=== PATIENT | male | born 1960 | race Caucasian/White ===

== ENCOUNTER 2018-03-07 21:25 | Inpatient (IN) | payer OTHER ==
[~2018-03-07] VITALS: Ht 185.4 cm; Wt 99.3 kg
--- NOTE | 2018-03-07 21:28 | NUR ---
BIBA TO ER BED 11
[2018-03-07 21:30] VITALS: BP 123/84
--- NOTE | 2018-03-07 21:30 | NUR ---
58/M BIBA FOR ETOH. PER EMS, PT WAS PICKED UP FROM [facility]. PT WAS FOUND ALTERED SITTING AT BATHROOM. BS 95 ON SCENE. PT ARRIVES AOX4, MILDLY LETHARGIC, AMBULATORY WITH GENERALIZED WEAKNESS. SKIN PINK WARM DRY. LUNG SOUNDS CLEAR BL, RR EVEN AND UNLABORED. BS ACTIVE X4, ABD SOFT ROUND NONTENDER. PT REPORTS DYSURIA, DENIES ANY OTHER PAIN. HX LIVER AND BLADDER CA, RECENT UTI RX RECENTLY TAKING KEFLEX PO
--- NOTE | 2018-03-07 21:40 | NUR ---
EKG PERFORMED AT BEDSIDE. PT COVERED IN GOWN. NORMAL SINUS RHYTHM
--- NOTE | 2018-03-07 21:55 | NUR ---
PT TAKEN TO CT
[2018-03-07 22:01] LABS: BASOPHILS # (AUTO) 0.1 K/uL (0.00-0.22); BASOPHILS % (AUTO) 1.7 % (0.0-2.0); EOSINOPHILS # (AUTO) 0.5 K/uL (0-0.4); EOSINOPHILS % (AUTO) 7.3 % (0.0-4.0); HEMATOCRIT 42.7 % (36-52); HEMOGLOBIN 14.1 g/dL (12.0-18.0); LYMPHOCYTES # (AUTO) 1.6 K/uL (2.0-11.5); LYMPHOCYTES % (AUTO) 23.6 % (20.5-51.1); MEAN CORPUSCULAR HEMOGLOBIN 31 pg (27-31); MEAN CORPUSCULAR HGB CONC 33 g/dL (33-37); MEAN CORPUSCULAR VOLUME 94.4 fL (80-94); MONOCYTES # (AUTO) 0.5 K/uL (0.8-1.0); MONOCYTES % (AUTO) 7.4 % (1.7-9.3); NEUTROPHILS # (AUTO) 4.1 K/uL (1.8-7.7); PLATELET COUNT (AUTO) 327 K/uL (140-450); RED BLOOD CELL COUNT(AUTO) 4.53 MIL/uL (4.20-6.10); RED CELL DISTRIBUTION WIDTH 18.4 % (11.6-13.7); WHITE BLOOD COUNT (AUTO) 6.8 K/uL (4.8-10.8)
[2018-03-07 22:19] LABS: APPEARANCE,URINE CLOUDY (CLEAR); BILIRUBIN,URINE 2+ (NEGATIVE); BLOOD, URINE 2+ (NEGATIVE); COLOR,URINE ORANGE (YELLOW); LEUKOCYTE ESTERASE ,URINE 1+ (NEGATIVE); NITRITE, URINE POSITIVE (NEGATIVE); UGLUCOSE 1+ (NEGATIVE)
[2018-03-07 22:23] LABS: POTASSIUM 3.7 mmol/L (3.5-5.1)
[2018-03-07 22:25] LABS: PROTHROMBIN TIME 10.1 secs (10.8-13.4)
[2018-03-07 22:31] LABS: BARBITURATE, URINE NEG. ng/ml (NEG <=200); BENZODIAZEPINE, URINE POS. ng/mL (NEG <=200); CANNABINOID, URINE NEG. ng/mL (NEG <=50); COCAINE, URINE NEG. ng/mL (NEG <=300); OPIATE, URINE NEG. ng/mL (NEG <=2000); PHENCYCLIDINE SCREEN,URINE NEG. ng/mL (NEG <=25)
[2018-03-07 22:37] LABS: ALBUMIN 4.2 g/dL (3.4-5.0); ANION GAP 6.7 (8-16); CREATININE 1.3 mg/dL (0.7-1.3); TOTAL BILIRUBIN 0.2 mg/dL (0.0-1.0)
--- NOTE | 2018-03-07 22:45 | NUR ---
PT SLEEPING COMFORTABLY, AROUSABLE TO NAME, SPO2 92% ON ROOM AIR, PLACED ON O2 2L NC, SPO2 96%. ALL NEEDS MET AT THIS TIME.
[2018-03-07 22:53] LABS: HYALINE CASTS, URINE 0-10 /LPF (None Seen); RBC,URINE TOO NUMEROUS TO COUN /HPF (0-5); WBC,URINE TOO MANY TO COUNT /HPF (0-5)
[2018-03-08] MEDS ORDERED: cefTRIAXone 1,000 MG VIAL ONE (00:43)
[2018-03-08] MEDS ORDERED: MORPHINE SULFATE 2 MG/ML SYR IVP PRN (00:45)
[2018-03-08] MEDS ORDERED: ONDANSETRON 4 MG/2 ML VIAL IM/IVP PRN (00:45)
[2018-03-08] MEDS ORDERED: ACETAMINOPHEN 325 MG TAB PO PRN (00:45)
[2018-03-08] MEDS ORDERED: LORazepam 2 MG/ML VIAL IM/IVP PRN (00:45)
[2018-03-08] MEDS ORDERED: DOCUSATE SODIUM 100 MG GELCAP PO PRN (00:45)
--- NOTE | 2018-03-08 01:00 | NUR ---
PROVIDED PT WITH ADDRESS TO PT'S CAR PARKED AT [facility] [address] [facility], [place], [place], [address].
--- NOTE | 2018-03-08 01:18 | NUR ---
Patient will be admitted to care of DR. CHEN. Admited to TELE. Will go to room 120B. Belongings list completed. Report to JACKSON ALTMAN.
--- NOTE | 2018-03-08 01:20 | NUR ---
ADMITTED A 58 Y/O MALE VIA GURNEY FROM WITH CHIEF COMPLAINT OF ALOC, CONFUSION, LETHARGY. PATIENT IS AMBULATORY, AA0X4, COOPERATIVE. DISCUSS PLAN OF CARE AND VERBALIZED UNDERSTANDING. MRSA NASAL SWAB DONE. SKIN NON-INTACT. PICTURE TAKEN RIGHT KNEE. ROUTINE ADMISSION CARE DONE AND CARRY OUT ORDERS. BED IN LOW LOCKED POSITION. CALL LIGHT WITHIN REACH. PERSONAL BELONGING AT BEDSIDE. ALL NEEDS ATTENDED. WILL CONTINUE TO MONITOR.
[2018-03-08] MEDS: NACL 0.9% 1,000 ML IV SCH ×3 (01:35→17:43)
[2018-03-08 01:44] LABS: FREE T4 (FREE THYROXINE) 0.85 ng/dL (0.76-1.46); MAGNESIUM 1.8 mg/dL (1.8-2.4); PHOSPHORUS 3.7 mg/dL (2.5-4.9); THYROID STIMULATING HORMONE 0.87 uIU/mL (0.34-3.74)
[2018-03-08] MEDS ORDERED: MORPHINE SULFATE 2 MG/ML SYR IVP SCH (03:30)
--- NOTE | 2018-03-08 03:30 | NUR ---
SEEN PATIENT ASLEEP COMFORTABLE ON BED. NO S/S OF DISTRESS NOTED. CALL LIGHT WITHIN REACH. WILL CONTINUE TO MONITOR.
[2018-03-08] MEDS ORDERED: LACTULOSE 20 GM/30 ML UDC PO SCH (03:35)
[2018-03-08 04:00] VITALS: BP 114/74
[2018-03-08] MEDS ORDERED: PIPERACILLIN/TAZOBACTAM 3.375 GM VIAL IV ONE (05:15)
--- NOTE | 2018-03-08 05:30 | NUR ---
SEEN PATIENT RESTING ON BED. SCHEDULE MEDICATION GIVEN TOLERATED WELL. CALL LIGHT WITHIN REACH.
[2018-03-08] MEDS: PIPER/TAZO 3.375GM/D5W PREMIX 50 ML IV SCH ×3 (06:18→18:24)
[2018-03-08] MEDS: HYDROcodone/APAP 5/325 MG 1 TAB TAB PO PRN ×3 (06:24→22:05)
--- NOTE | 2018-03-08 07:30 | NUR ---
ENDORSEMENT GIVEN TO AM SHIFT NURSE AT BEDSIDE FOR CONTINUITY OF CARE. PATIENT IN STABLE CONDITION.
--- NOTE | 2018-03-08 07:31 | NUR ---
REPORT RECEIVED FROM DIE MECHANIC NURSE AT BEDSIDE FOR CONTINUITY OF CARE. PATIENT AWAKE AND ALERT. PATIENT IS AMBULATORY, AA0X4, COOPERATIVE. DISCUSS PLAN OF CARE AND VERBALIZED UNDERSTANDING. IV SITE DRY, INTACT, ASYMPTOMATIC, AND INFUSING IVF WELL. PATIENT STATES THAT PAIN IS TOLERABLE AT THIS TIME. UPDATED BOARD. SKIN NON-INTACT WITH RIGHT KNEE SCAB. SAFETY PRECAUTION IN PLACE, CALL LIGHT WITHIN REACH, WILL CONTINUE TO MONITOR.
[2018-03-08 07:52] VITALS: BP 107/70
[2018-03-08] MEDS: LACTULOSE 20 GM/30 ML UDC PO SCH (08:28)
[2018-03-08] MEDS: LACTOBACILLUS RHAMNOSUS GG 1 EACH CAP PO SCH (08:28)
--- NOTE | 2018-03-08 08:28 | NUR ---
ORDERED MEDICATION GIVEN. PATIENT TOLERATED IT WELL. WILL CONTINUE TO MONITOR PATIENT.
--- NOTE | 2018-03-08 09:00 | NUR ---
NEW ORDER IN, PATIENT OFF NPO, NOW ON REGULAR DIET. CALLED DIETARY FOR REGULAR BREAKFAST TRAY FOR PATIENT. WILL FOLLOW UP LATER IF TRAY DOES NOT ARRIVE.
--- NOTE | 2018-03-08 09:06 | NUR ---
PATIENT HAS BEEN SCREENED AND CATEGORIZED HIGH NUTRITION RISK. PATIENT WILL BE SEEN WITHIN 1-2 DAYS OF ADMISSION. 03/08/18 03/09/[address]
[2018-03-08 09:22] LABS: BASOPHILS % (AUTO) 0.8 % (0.0-2.0); EOSINOPHILS # (AUTO) 0.4 K/uL (0-0.4); EOSINOPHILS % (AUTO) 8.9 % (0.0-4.0); HEMATOCRIT 36.1 % (36-52); HEMOGLOBIN 11.9 g/dL (12.0-18.0); LYMPHOCYTES # (AUTO) 1.2 K/uL (2.0-11.5); LYMPHOCYTES % (AUTO) 24.9 % (20.5-51.1); MEAN CORPUSCULAR HEMOGLOBIN 31 pg (27-31); MEAN CORPUSCULAR HGB CONC 33 g/dL (33-37); MEAN CORPUSCULAR VOLUME 94.5 fL (80-94); MONOCYTES # (AUTO) 0.4 K/uL (0.8-1.0); MONOCYTES % (AUTO) 8.4 % (1.7-9.3); NEUTROPHILS # (AUTO) 2.7 K/uL (1.8-7.7); PLATELET COUNT (AUTO) 252 K/uL (140-450); RED BLOOD CELL COUNT(AUTO) 3.82 MIL/uL (4.20-6.10); RED CELL DISTRIBUTION WIDTH 18.4 % (11.6-13.7); WHITE BLOOD COUNT (AUTO) 4.7 K/uL (4.8-10.8)
[2018-03-08 09:30] LABS: CHOL/HDL RATIO 6.8 (1-4.5)
--- NOTE | 2018-03-08 09:30 | NUR ---
DIETARY BROUGHT REGULAR TRAY FOR PATIENT.
[2018-03-08 09:45] LABS: ANION GAP 5.1 (8-16); CARBON DIOXIDE 32.8 mmol/L (21-32); CREATININE 1.1 mg/dL (0.7-1.3); POTASSIUM 3.9 mmol/L (3.5-5.1)
[2018-03-08 09:46] LABS: MAGNESIUM 1.9 mg/dL (1.8-2.4); PHOSPHORUS 3.2 mg/dL (2.5-4.9)
--- NOTE | 2018-03-08 10:21 | NUR ---
ORDERED MEDICATION GIVEN. PATIENT C/O 6/10 PAIN, PRN PAIN MEDICATION GIVEN. PATIENT TOLERATED IT WELL. WILL CONTINUE TO MONITOR PATIENT.
[2018-03-08 12:00] VITALS: BP 123/72
--- NOTE | 2018-03-08 13:41 | NUR ---
ORDERED MEDICATION GIVEN. PATIENT TOLERATED IT WELL. PATIENT'S MOTHER AND SISTER CALLED SEPARATELY ONE AFTER THE OTHER. UPDATED THEM WITH PATIENT'S CONDITION. THEY VERBALIZED UNDERSTANDING. PATIENT ASLEEP, THEY SAID THEY WILL CALL HIM BACK.
[2018-03-08] MEDS: MORPHINE SULFATE 2 MG/ML SYR IVP PRN ×2 (14:35→18:22)
--- NOTE | 2018-03-08 14:35 | NUR ---
ORDERED MEDICATION GIVEN. PATIENT C/O 8/10 PAIN, MORPHINE PRN GIVEN. PATIENT TOLERATED IT WELL. WILL CONTINUE TO MONITOR PATIENT.
--- NOTE | 2018-03-08 15:19 | NUR ---
03/08/18 RD INITIAL ASSESSMENT COMPLETED PLEASE REFER TO NUTRITION ASSESSMENT UNDER CARE ACTIVITY FOR ESTIMATED NUTRITIONAL NEEDS. 1. CONTINUE REGULAR DIET TOLERATED 2. RECOMMEND HEALTH SHAKE, ICE- CREAM TO SUPPLEMENT CALORIE LEVELS. 3. RD TO FOLLOW-UP 3-5 DAYS, MODERATE RISK. TERRENCE CHAMBERLAIN RD
[2018-03-08 16:00] VITALS: BP 139/81
--- NOTE | 2018-03-08 16:15 | NUR ---
VITAL SIGNS WITHIN NORMAL LIMITS. PATIENT ASKED ABOUT PAIN MEDICATIONS. INFORMED HIM OF SCHEDULED PAIN MED. HE VERBALIZED UNDERSTANDING. WILL CONTINUE TO MONITOR PATIENT.
--- NOTE | 2018-03-08 18:25 | NUR ---
ORDERED MEDICATION GIVEN. PATIENT C/O 8/10 PAIN, MORPHINE PRN GIVEN. PATIENT TOLERATED IT WELL. WILL CONTINUE TO MONITOR PATIENT.
--- NOTE | 2018-03-08 19:38 | NUR ---
REPORT GIVEN AT BEDSIDE FOR CONTINUITY OF CARE. PATIENT IN STABLE CONDITION, SLEEPING.
[2018-03-08 20:00] VITALS: BP 103/49
[2018-03-08] MEDS: ATORVASTATIN 20 MG TAB PO SCH (20:38)
--- NOTE | 2018-03-08 20:39 | NUR ---
ADMINISTERED SCHEDULED MEDICATION, PT TOLERATED WELL.
[2018-03-08] MEDS: ZOLPIDEM 5 MG TAB PO PRN (22:07)
--- NOTE | 2018-03-08 22:10 | NUR ---
PT REQUESTED [facility] FOR PAIN AND AMBIEN FOR INSOMNIA. MEDICATED PT, PT TOLERATED WELL.
[2018-03-09] VITALS: BP 115/67
--- NOTE | 2018-03-09 | NUR ---
VITAL SIGNS WITHIN NORMAL LIMITS. PT STABLE, NO SIGNS OF DISTRESS NOTED AT THIS TIME. BED IN LOWEST POSITION, BED ALARM ON. CALL LIGHT WITHIN REACH, WILL CONTINUE TO MONITOR.
[2018-03-09] MEDS: PIPER/TAZO 3.375GM/D5W PREMIX 50 ML IV SCH ×4 (00:03→17:46)
--- NOTE | 2018-03-09 02:12 | NUR ---
PT RESTING, STABLE, NO SIGNS OF DISTRESS NOTED AT THIS TIME. BED IN LOWEST POSITION, BED ALARM ON. CALL LIGHT WITHIN REACH, WILL CONTINUE TO MONITOR.
[2018-03-09] MEDS: MORPHINE SULFATE 2 MG/ML SYR IVP PRN ×2 (02:28→08:18)
[2018-03-09 04:00] VITALS: BP 98/62
[2018-03-09] MEDS: NACL 0.9% 1,000 ML IV SCH ×2 (05:52→08:40)
[2018-03-09 07:04] LABS: BASOPHILS % (AUTO) 0.7 % (0.0-2.0); EOSINOPHILS # (AUTO) 0.3 K/uL (0-0.4); EOSINOPHILS % (AUTO) 5.1 % (0.0-4.0); HEMOGLOBIN 12.6 g/dL (12.0-18.0); LYMPHOCYTES # (AUTO) 0.8 K/uL (2.0-11.5); LYMPHOCYTES % (AUTO) 13.1 % (20.5-51.1); MEAN CORPUSCULAR HEMOGLOBIN 31 pg (27-31); MEAN CORPUSCULAR HGB CONC 33 g/dL (33-37); MEAN CORPUSCULAR VOLUME 93.8 fL (80-94); MONOCYTES # (AUTO) 0.4 K/uL (0.8-1.0); MONOCYTES % (AUTO) 7.2 % (1.7-9.3); NEUTROPHILS # (AUTO) 4.6 K/uL (1.8-7.7); NEUTROPHILS % (AUTO) 73.9 % (42.2-75.2); PLATELET COUNT (AUTO) 272 K/uL (140-450); RED BLOOD CELL COUNT(AUTO) 4.06 MIL/uL (4.20-6.10); RED CELL DISTRIBUTION WIDTH 18.4 % (11.6-13.7); WHITE BLOOD COUNT (AUTO) 6.2 K/uL (4.8-10.8)
--- NOTE | 2018-03-09 07:15 | NUR ---
ASSUMED CONTINUITY OF CARE. NO SIGNS AND SYMPTOMS OF ACUTE DISTRESS NOTICED. INITIAL ASSESSMENT DONE. EXPLAINED DIAGNOSIS, PLAN OF CARE, PAIN MANAGEMENT TEACHING, USE OF CALL LIGHT/BED/TV/BATHROOM. VERBALIZED UNDERSTANDING. CALL LIGHT WITHIN REACH.
[2018-03-09 07:17] LABS: T4 (THYROXINE) 6.3 ug/dL (4.5-12.0)
[2018-03-09 07:18] LABS: MAGNESIUM 1.9 mg/dL (1.8-2.4); PHOSPHORUS 2.5 mg/dL (2.5-4.9)
[2018-03-09 07:22] LABS: CARBON DIOXIDE 28.6 mmol/L (21-32); CREATININE 0.8 mg/dL (0.7-1.3); POTASSIUM 3.6 mmol/L (3.5-5.1)
--- NOTE | 2018-03-09 07:25 | NUR ---
ENDORSED PT TO DAY SHIFT RN FOR CONTINUITY OF CARE, PT IN STABLE CONDITION.
--- NOTE | 2018-03-09 07:25 | NUR ---
VITAL SIGNS WITHIN NORMAL LIMITS. PT STABLE, NO SIGNS OF DISTRESS NOTED AT THIS TIME. BED IN LOWEST POSITION, BED ALARM ON. CALL LIGHT WITHIN REACH, WILL CONTINUE TO MONITOR. Addendum: 03/09/18 at 0725 by Kusum Vences RN DISREGARD
--- NOTE | 2018-03-09 07:26 | NUR ---
Patient's Plan of Care was discussed and reviewed with [employer] REPRESENTATIVE: GARLAND MODI
[2018-03-09 08:00] VITALS: BP 102/66
[2018-03-09] MEDS: LACTOBACILLUS RHAMNOSUS GG 1 EACH CAP PO SCH (08:42)
[2018-03-09] MEDS: LACTULOSE 20 GM/30 ML UDC PO SCH ×2 (08:42→20:27)
--- NOTE | 2018-03-09 11:45 | NUR ---
IV ACCESS ON RIGHT AC GAUGE #18 OCCLUDED AND REMOVED. INSERTED NEW IV ACCESS ON RIGHT FOREARM WITH GAUGE #22. TOLERATED WELL. NO C/O PAIN.
[2018-03-09 12:00] VITALS: BP 128/91
[2018-03-09] MEDS: oxyCODONE 5 MG TAB PO PRN ×2 (12:35→18:21)
[2018-03-09 16:00] VITALS: BP 122/92
--- NOTE | 2018-03-09 19:16 | NUR ---
BEDSIDE REPORT GIVEN TO LISANDRO RODRIGUEZ -JACKSON. IVF INFUSING WELL. IN STABLE CONDITION.
--- NOTE | 2018-03-09 19:17 | NUR ---
RECEIVED REPORT FROM DAY SHIFT NURSE. AAOX4. PT LYING COMFORTABLY IN BED. NO C/O PAIN OR SOB. PT ON ROOM AIR. IV TO RIGHT FA #22G, NS AT 80 ML/HR, INFUSING WELL. PT HAS SCAB TO RIGHT KNEE. DISCUSSED PLAN OF CARE, PT VERBALIZED UNDERSTANDING. SAFETY PRECAUTION IN PLACE. CALL LIGHT WITHIN REACH.
[2018-03-09] MEDS: ATORVASTATIN 20 MG TAB PO SCH (20:26)
--- NOTE | 2018-03-09 20:27 | NUR ---
DUE MEDS GIVEN. PT TOLERATED WELL. NO C/O PAIN AT THIS TIME.
[2018-03-09] MEDS: ZOLPIDEM 5 MG TAB PO PRN (22:18)
--- NOTE | 2018-03-09 22:19 | NUR ---
PT STATED HE COULDN'T SLEEP AND ASKED FOR MEDS TO MAKE HIM SLEEP. AMBIEN 5 MG PO GIVEN.
[2018-03-10] VITALS: BP 130/84
[2018-03-10] MEDS: oxyCODONE 5 MG TAB PO PRN (00:22)
[2018-03-10] MEDS: PIPER/TAZO 3.375GM/D5W PREMIX 50 ML IV SCH ×2 (00:22→05:36)
--- NOTE | 2018-03-10 00:22 | NUR ---
PT C/O ABDOMINAL PAIN SCALE 7/10. OXYCODONE 5 MG PO GIVEN ORDERED FOR SEVERE PAIN.
[2018-03-10] MEDS ORDERED: KETOROLAC 30 MG/ML VIAL IM ONE (01:55)
[2018-03-10] MEDS ORDERED: oxyCODONE 5 MG TAB PO PRN (01:55)
--- NOTE | 2018-03-10 02:00 | NUR ---
PT SLEEPING. RESP EVEN AND UNLABORED. NO S/S OF PAIN. IVF INFUSING WELL.
[2018-03-10] MEDS ORDERED: MORPHINE SULFATE 2 MG/ML SYR IVP PRN (03:10)
--- NOTE | 2018-03-10 03:22 | NUR ---
PT C/O ABDOMINAL PAIN 01/08 AND STATED HE WANTS STRONGER PAIN MEDS. DR. FAN MADE AWARE AND ORDERED MORPHINE 2 MG Q6HRS PRN FOR SEVERE PAIN.
[2018-03-10] MEDS ORDERED: MORPHINE SULFATE 2 MG/ML SYR ONE (03:25)
--- NOTE | 2018-03-10 05:30 | NUR ---
PT SLEEPING. NO S/S OF RESP DISTRESS. NO S/S OF PAIN.
[2018-03-10] MEDS: NACL 0.9% 1,000 ML IV SCH (07:13)
--- NOTE | 2018-03-10 07:14 | NUR ---
ENDORSED PT TO DAY SHIFT NURSE. PT IN STABLE CONDITION.
--- NOTE | 2018-03-10 07:14 | NUR ---
ASSUMED CONTINUITY OF CARE. NO SIGNS AND SYMPTOMS OF ACUTE DISTRESS NOTICED. INITIAL ASSESSMENT NOTED. INITIAL ASSESSMENT DONE. EXPLAINED DIAGNOSIS, PLAN OF CARE, PAIN MANAGEMENT TEACHING, USE OF CALL LIGHT/BED/TV/BATHROOM. VERBALIZED UNDERSTANDING.
[2018-03-10 07:46] LABS: BASOPHILS % (AUTO) 0.6 % (0.0-2.0); EOSINOPHILS # (AUTO) 0.2 K/uL (0-0.4); EOSINOPHILS % (AUTO) 2.8 % (0.0-4.0); HEMATOCRIT 38.5 % (36-52); HEMOGLOBIN 12.9 g/dL (12.0-18.0); LYMPHOCYTES # (AUTO) 1.3 K/uL (2.0-11.5); LYMPHOCYTES % (AUTO) 22.6 % (20.5-51.1); MEAN CORPUSCULAR HEMOGLOBIN 31 pg (27-31); MEAN CORPUSCULAR HGB CONC 34 g/dL (33-37); MEAN CORPUSCULAR VOLUME 93.7 fL (80-94); MONOCYTES # (AUTO) 0.5 K/uL (0.8-1.0); NEUTROPHILS # (AUTO) 3.8 K/uL (1.8-7.7); PLATELET COUNT (AUTO) 297 K/uL (140-450); RED BLOOD CELL COUNT(AUTO) 4.11 MIL/uL (4.20-6.10); RED CELL DISTRIBUTION WIDTH 18.9 % (11.6-13.7); WHITE BLOOD COUNT (AUTO) 5.9 K/uL (4.8-10.8)
[2018-03-10 08:00] VITALS: BP_SYST 118; BP_SYST 155; BP_DIAS 79; BP_DIAS 95
[2018-03-10 08:16] LABS: ALBUMIN 3.4 g/dL (3.4-5.0); ANION GAP 10.6 (8-16); CREATININE 0.9 mg/dL (0.7-1.3); MAGNESIUM 1.9 mg/dL (1.8-2.4); PHOSPHORUS 2.7 mg/dL (2.5-4.9); POTASSIUM 3.6 mmol/L (3.5-5.1); TOTAL BILIRUBIN 0.3 mg/dL (0.0-1.0)
[2018-03-10] MEDS: LACTULOSE 20 GM/30 ML UDC PO SCH (09:12)
[2018-03-10] MEDS: LACTOBACILLUS RHAMNOSUS GG 1 EACH CAP PO SCH (09:12)
[2018-03-10] MEDS ORDERED: oxyCODONE 10 MG TABER PO ONE (09:35)
[2018-03-10] MEDS ORDERED: oxyCODONE 10 MG TABER PO SCH ×2 (10:00→11:52)
[2018-03-10] MEDS ORDERED: LACT10SO1 PO (11:46)
[2018-03-10 12:00] VITALS: BP 143/93
--- NOTE | 2018-03-10 12:10 | NUR ---
REFUSED WHEELCHAIR USE FOR D/C. PT. AMBULATORY AND HAD STEADY GAIT AND BALANCE. D/C HOME, ACCOMPANIED BY PT. FAMILY MEMBERS. AWAKE, ALERT, AND ORIENTED X4. SPEECH CLEAR. NO C/O PAIN. NO SOB, NOTED. IN STABLE CONDITION. INFORMED CHARGE NURSE STANTON SANTILLAN.
== END 2018-03-10 12:10 | disposition home or self-care (01) | DRG 871 ==
LOC: MED 21:25 → MTU 03-08 00:45
PROVIDERS: ADMIT General Practice; ATTEND General Practice
DX: A41.9 Sepsis, unspecified organism (principal); G92 Toxic encephalopathy; N17.0 Acute kidney failure with tubular necrosis; N39.0 Urinary tract infection, site not specified; C78.7 Secondary malignant neoplasm of liver and intrahepatic bile duct; C18.9 Malignant neoplasm of colon, unspecified; E87.1 Hypo-osmolality and hyponatremia; F13.20 Sedative, hypnotic or anxiolytic dependence, uncomplicated; C79.11 Secondary malignant neoplasm of bladder; K72.90 Hepatic failure, unspecified without coma; E66.3 Overweight; Z96.643 Presence of artificial hip joint, bilateral; F15.90 Other stimulant use, unspecified, uncomplicated; E78.5 Hyperlipidemia, unspecified; Z68.29 Body mass index [BMI] 29.0-29.9, adult; Z90.49 Acquired absence of other specified parts of digestive tract
CPT/HCPCS: 36415; 70450; 71045; 80048; 80053; 80305; 81001; 82140; 82150; 83036; 83605; 83690; 83735; 83880; 84100; 84134; 84436; 84439; 84443; 84479; 84484; 85025; 85610; 85730; 87040; 87081; 87086; 93005; 93880; 96374; 99285; G0482; J0696; J2270; J2543; J7030; J7060; Q0092